=== PATIENT | male | born 1990 | race Caucasian/White ===

== ENCOUNTER 2018-12-04 20:28 | Emergency (ER) | payer OTHER ==
[~2018-12-04] VITALS: Ht 180.3 cm; Wt 106.6 kg
== END 2018-12-04 22:15 | disposition home or self-care (01) ==
LOC: ER 20:28
DX: H53.8 Other visual disturbances (principal)

== ENCOUNTER 2023-06-23 11:09 | Emergency (ER) | payer OTHER ==
[~2023-06-23] VITALS: Ht 180.3 cm; Wt 125.2 kg
[2023-06-23 13:00] LABS: HEMATOCRIT 42.7 % (39.0-48.0); HEMOGLOBIN 14.3 g/dL (13-16.00); MEAN CELL VOLUME 92.5 fL (80.0-100.00); MEAN CORPUSCULAR HGB CONC 33.5 g/dl (32.0-36.0); PLATELET COUNT 270 K/uL (150-450); RED BLOOD COUNT 4.62 M/uL (4.00-6.00); RED CELL DISTRIBUTION WIDTH 12.4 % (11.5-14.5)
[2023-06-23 13:31] LABS: PH,URINE 6.5 (5.0-8.0); URINE APPEARANCE Clear; URINE BILIRRUBIN Negative (NEGATIVE); URINE BLOOD Negative; URINE COLOR Yellow; URINE GLUCOSE Negative (NEGATIVE); URINE LEUKOCYTE Negative; URINE NITRATE Negative; URINE PROTEIN Negative (NEGATIVE)
[2023-06-23 13:38] LABS: URINE EPITHELIAL CELLS 1.5 uL (0.0-38.8); URINE RBC 2.7 uL (0.0-20.8)
[2023-06-23 14:05] LABS: CALCIUM 9.2 mg/dL (8.5-10.1); CREATININE SERUM 0.92 mg/dL (0.70-1.30); GFR 95.34; POTASSIUM 4.22 mEq/L (3.5-5.1)
[2023-06-23 14:34] LABS: URINE WBC 1.6 uL (0.0-23.2)
== END 2023-06-23 16:14 | disposition home or self-care (01) ==
LOC: ER 11:09
PROVIDERS: Emergency Medicine
DX: R10.11 Right upper quadrant pain (principal); Z88.6 Allergy status to analgesic agent